=== PATIENT | female | born 1995 | race Two or more races ===

== ENCOUNTER 2019-10-05 13:20 | Emergency (ER) | payer SELFPAY ==
[~2019-10-05] VITALS: Ht 167.6 cm; Wt 56.7 kg
[2019-10-05 13:29] VITALS: BP 108/60
[2019-10-05] MEDS ORDERED: Methocarbamol 500mg tab ORAL ONE (13:45)
[2019-10-05] MEDS ORDERED: Ketorolac 30mg Inj IM ONE (13:45)
--- NOTE | 2019-10-05 13:45 | NUR ---
ED Nurse Note: Patient [place] up from a park and was brought in by [id number] due to right hip pain 30 mins ago. Pt was exercising and had ''spasms." patient presented crying, stated can not move, AAO x4, VSS at tis time
--- NOTE | 2019-10-05 14:59 | Emergency Room Report ---
History of Present Illness General Chief Complaint: Pain Source: Patient Present Illness HPI 24 YO Female presents to the ED c/o 09/14 in severity acute onset of right lower back/hip pain while [place]fit in the park. Pt. reports she was doing a maneuver where she was bent over using a weighted rope. She denies numbness tingling or loss of sensation or gross motor movements of the extremities, incontinence of bowel or bladder. She denies midline neck or back pain. She denies previous back injuries. Pt. reports pain is exacerbated with attempting to extend at the right hip area. Pt. reports POC is on the left lateral side with legs curled up. Denies changes in vision, weakness or a sudden severe headache. She denies specific trauma or fall. She denies and reports she has an IUD and is not currently sexually active. Pt. denies abdominal pain, nausea or vomiting. 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 Patient History Past Medical History: see triage record Past Surgical History: none Pertinent Family History: none Now: No - IUD Reviewed Nursing Documentation: PMH: Agreed; PSxH: Agreed Nursing Documentation-PMH Past Medical History: No History, Except For Review of Systems All Other Systems: negative except mentioned in HPI Physical Exam Vital Signs Date Time Temp Pulse Resp B/P (MAP) Pulse Ox O2 Delivery O2 Flow Rate FiO2 10/05/19 13:14 98.2 90 16 108/60 (76) 99 Room Air Medical Decision Making PA Attestation Dr. Brown is my supervising Physician whom patient management has been discussed with. Diagnostic Impression: Primary Impression: Muscle strain of right gluteal region Qualified Codes: S76.011A - Strain of muscle, fascia and tendon of right hip, initial encounter Additional Impression: Muscle strain of right lower extremity Qualified Codes: S86.911A - Strain of unspecified muscle(s) and tendon(s) at lower leg level, right leg, initial encounter ER Course 24 YO Female presents to the ED c/o 09/14 in severity acute onset of right lower back/hip pain while [place] cross[place]fit in the park. Pt. reports she was doing a maneuver where she was bent over using a weighted rope. She denies numbness tingling or loss of sensation or gross motor movements of the extremities, incontinence of bowel or bladder. She denies midline neck or back pain. She denies previous back injuries. Pt. reports pain is exacerbated with attempting to extend at the right hip area. Pt. reports POC is on the left lateral side with legs curled up. Denies changes in vision, weakness or a sudden severe headache. She denies specific trauma or fall. She denies and reports she has an IUD and is not currently sexually active. Pt. denies abdominal pain, nausea or vomiting. Ddx considered but are not limited to Fracture, dislocation, contusion, epidural abscess, Sprain/Strain/Spasm Vital signs: are WNL, pt. is afebrile H&PE are most consistent with muscle spasm, no Focal neurological deficits. NVI , non traumatic KELLY. ORDERS: none required at this time. ED INTERVENTIONS: -Robaxin PO -Lidoderm TP - Toradol IM DISCHARGE: At this time pt. is stable for d/c to home. Will provide printed patient care instructions, and any necessary prescriptions. Care plan and follow up instructions have been discussed with the patient prior to discharge. Last Vital Signs Date Time Temp Pulse Resp B/P (MAP) Pulse Ox O2 Delivery O2 Flow Rate FiO2 10/05/19 13:29 98.2 16 108/60 99 Room Air 10/05/19 13:14 90 Disposition: HOME, SELF-CARE Condition: Stable Scripts Lidocaine Patch* (Lidoderm Patch*) 1 Each Adh..patch 1 PATCH TOPIC DAILY, #30 PATCH 0 Refills Patch(es) may remain in place for up to 12 hours in any 24-hour period. Prov: Ricarda Booker 10/05/19 Methocarbamol* (ROBAXIN-750*) 750 Mg Tablet 750 MG PO QID, #28 TAB 0 Refills Prov: Ricarda Booker 10/05/19 Tramadol Hcl* (ULTRAM*) 50 Mg Tablet 50 MG ORAL Q6H PRN for For Pain, #12 TAB 0 Refills Prov: Ricarda Booker 10/05/19 Referrals: NOT CHOSEN IPA/MD,REFERRING (PCP) Additional Instructions: Take medications as directed. Follow up with a Primary Care Provider in 3-5 days, even if your symptoms have resolved. --Please review list of primary care clinics, if you do not already have a primary care provider Return sooner to ED if new symptoms occur, or current symptoms become worse. Do not drink alcohol, drive, or operate heavy machinery while taking Robaxin ( Muscle Relaxers) as this may cause drowsiness. - Please note that this Emergency Department Report was dictated using [employer]ber[employer] furnace operator technology software, occasionally this can lead to erroneous entry secondary to interpretation by the dictation equipment. Ricarda Booker Oct 05, 2019 14:59
[2019-10-05] MEDS ORDERED: HYDROcodone/Acetamin 5/325 tab ORAL ONE (15:15)
[2019-10-05] MEDS ORDERED: TRAMADOL HCL50 MG ORAL (15:29)
[2019-10-05] MEDS ORDERED: LIDODERM700 M1 TOPIC (15:29)
[2019-10-05] MEDS ORDERED: ROBAXIN-750750 MG PO (15:29)
[2019-10-05 16:49] VITALS: BP 108/60
--- NOTE | 2019-10-05 16:50 | NUR ---
ED Nurse Note: Pt cleared by health care Provider for discharge. DC instructions/prescription was given and explained to pt and verbalized understanding of teachings. All medical deviecs such as ID band removed. Pt is AAO x4, ambulatory and left with all personal belongings.
== END 2019-10-05 16:52 | disposition home or self-care (01) ==
LOC: EDBD 13:20 → EMR 14:03
DX: S76.011A Strain of muscle, fascia and tendon of right hip, initial encounter (principal); S86.911A Strain of unspecified muscle(s) and tendon(s) at lower leg level, right leg, initial encounter; M54.5 Low back pain; Z97.5 Presence of (intrauterine) contraceptive device; Y93.B9 Activity, other involving muscle strengthening exercises
CPT/HCPCS: 96372; 99283; J1885